=== PATIENT | female | born 1965 | race Caucasian/White ===

== ENCOUNTER → 2020-05-09 15:54 | Outpatient (CLI) | payer OTHER, SELFPAY ==
--- NOTE | 2020-05-09 16:01 | DI.RAD.S_ITS ---
PROCEDURE: XR KNEE RT 1TO2V INDICATIONS: RIGHT KNEE PAIN TECHNIQUE: 3 views of the knee were acquired. COMPARISON: None. FINDINGS: Bones: No fractures or dislocations. No suspicious bony lesions. Mild narrowing of the medial femorotibial joint and tricompartmental periarticular osteophyte formation. Soft tissues: No joint effusion. No suspicious soft tissue calcifications. IMPRESSION: Mild joint degeneration. Dictated by: Héctor Diaz [facility] Interpreted: Nabeel Silva MD on 05/09/2020 at 16:25 Approved by: Nabeel Silva M.D. on 05/09/2020 at 17:03
== END ==
PROVIDERS: PCP Student in an Organized Health Care Education/Training Program; Referring Provider Student in an Organized Health Care Education/Training Program; Visit Provider Student in an Organized Health Care Education/Training Program
DX: M25.561 Pain in right knee (principal); M17.11 Unilateral primary osteoarthritis, right knee
CPT/HCPCS: 73560

== ENCOUNTER → 2020-05-19 14:17 | Outpatient (CLI) | payer OTHER, SELFPAY ==
[2020-05-19 16:09] LABS: Add Manual Diff / Slide Review NO; Basophils Absolute Auto 0 /uL (0-100); Basophils Percent Auto 0.6 % (0-2); Eosinophils Absolute Auto 100 /uL (0-450); Eosinophils Percent Auto 1.4 % (2-4); Hemoglobin 13.6 g/dL (12.0-16.0); Lymphocytes Absolute Auto 2200 /uL (1100-4500); Lymphocytes Percent Auto 34.2 % (25-40); Mean Corpuscular HGB Conc 34.1 % (30-36); Mean Corpuscular Hemoglobin 31.3 PG (26-34); Mean Corpuscular Volume 91.8 fL (80-100); Monocytes Absolute Auto 500 /uL (0-900); Monocytes Percent Auto 7.6 % (3-14); Neutrophils Absolute Auto 3600 /uL (1500-7000); Neutrophils Percent Auto 56.2 % (50-75); Platelet Count 198 X10^3/uL (150-400); Red Blood Cell Count 4.36 X10^6/uL (4.0-5.2); Red Cell Distribution Width 13.6 % (11.6-14.8); White Blood Cell Count 6.4 X10^3/uL (4.5-11.0)
[2020-05-19 16:49] LABS: Alanine Aminotransferase 21 IU/L (<35); Albumin 4.3 g/dL (3.5-5.0); Albumin Globulin Ratio 1.5 (1.0-2.8); Alkaline Phosphatase 70 U/L (38-126); Aspartate Aminotransferase 28 IU/L (14-36); BUN Creatinine Ratio 27.8 (6-22); Bilirubin Total 0.5 mg/dL (0.2-1.3); Blood Urea Nitrogen 20 mg/dL (7-17); Calcium 9.7 mg/dL (8.4-10.2); Carbon Dioxide 25 mmol/L (22-32); Chloride 105 mmol/L (98-107); Cholesterol 193 mg/dL (140-199); Estimated Glomerular Filt Rate > 60.0 mL/min (>60); Globulin 2.8 g/dL (1.7-4.1); Glucose 90 mg/dL (70-100); HDL Cholesterol 50 mg/dL (40-60); HEMOLYSIS < 15 (0-50); LDL Cholesterol Calculated 123 mg/dL (<100); Potassium 4.1 mmol/L (3.4-5.1); Sodium 138 mmol/L (137-145); Total Protein 7.1 g/dL (6.3-8.2); Triglycerides 102 mg/dL (35-150)
[2020-05-19 17:13] LABS: TSH w/ Reflex to FT4 1.87 uIU/mL (0.47-4.68)
== END ==
PROVIDERS: PCP Student in an Organized Health Care Education/Training Program; Referring Provider Student in an Organized Health Care Education/Training Program; Visit Provider Student in an Organized Health Care Education/Training Program
DX: E66.9 Obesity, unspecified (principal)
CPT/HCPCS: 36415; 80053; 80061; 84443; 85025

== ENCOUNTER 2020-06-28 15:56 | Emergency (ER) | payer OTHER, SELFPAY ==
[2020-06-28 16:00] VITALS: BP 132/79; PULSE 86; RESP 20; TEMP 36.8; O2SAT 97; BMI 32.3
[2020-06-28 16:25] VITALS: PULSE 70; RESP 26; O2SAT 97
[2020-06-28 16:30] VITALS: BP 110/68; PULSE 69; RESP 27; O2SAT 98
[2020-06-28 16:39] LABS: Add Manual Diff / Slide Review NO; Basophils Absolute Auto 0 /uL (0-100); Basophils Percent Auto 0.6 % (0-2); Eosinophils Absolute Auto 200 /uL (0-450); Eosinophils Percent Auto 2.3 % (2-4); Hematocrit 40.5 % (36-46); Hemoglobin 13.7 g/dL (12.0-16.0); Lymphocytes Absolute Auto 2900 /uL (1100-4500); Lymphocytes Percent Auto 43.9 % (25-40); Mean Corpuscular HGB Conc 33.9 % (30-36); Mean Corpuscular Hemoglobin 31.1 PG (26-34); Mean Corpuscular Volume 91.8 fL (80-100); Monocytes Absolute Auto 600 /uL (0-900); Monocytes Percent Auto 8.4 % (3-14); Neutrophils Absolute Auto 2900 /uL (1500-7000); Neutrophils Percent Auto 44.8 % (50-75); Platelet Count 239 X10^3/uL (150-400); Red Blood Cell Count 4.41 X10^6/uL (4.0-5.2); Red Cell Distribution Width 13.4 % (11.6-14.8); White Blood Cell Count 6.6 X10^3/uL (4.5-11.0)
[2020-06-28 16:45] LABS: Alanine Aminotransferase 17 IU/L (<35); Albumin 4.4 g/dL (3.5-5.0); Albumin Globulin Ratio 1.4 (1.0-2.8); Alkaline Phosphatase 72 U/L (38-126); Aspartate Aminotransferase 29 IU/L (14-36); BUN Creatinine Ratio 18.6 (6-22); Bilirubin Total 0.4 mg/dL (0.2-1.3); Blood Urea Nitrogen 13 mg/dL (7-17); Calcium 9.4 mg/dL (8.4-10.2); Carbon Dioxide 27 mmol/L (22-32); Chloride 106 mmol/L (98-107); Estimated Glomerular Filt Rate > 60.0 mL/min (>60); Globulin 3.2 g/dL (1.7-4.1); Glucose 114 mg/dL (70-100); HEMOLYSIS 25 (0-50); Lipase 96 U/L (23-300); Potassium 4.1 mmol/L (3.4-5.1); Sodium 141 mmol/L (137-145); Total Protein 7.6 g/dL (6.3-8.2)
[2020-06-28] MEDS: ASPIRIN 81 MG CHEW TAB 324 MG PO (16:56)
[2020-06-28 16:57] LABS: NT-proBNP (BNP-Adult 18+) 59 pg/mL (<125); Troponin I < 0.012 ng/mL (0.01-0.034)
[2020-06-28 17:00] VITALS: PULSE 73; RESP 27; O2SAT 97
[2020-06-28 17:01] VITALS: BP 128/73; PULSE 73; RESP 27; O2SAT 97
--- NOTE | 2020-06-28 17:10 | ED_ITS ---
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 She describes the pain as sharp stabbing requiring her full attention for a couple of minutes located just under her breast on the left side occurring while she was at rest and not associated with diaphoresis or dyspnea. She notes that she has had a bit more dizziness over the last 24 hours but also notes that she has been having an exacerbation of her benign positional vertigo over the last number of weeks to months. She describes no fevers, cough, chills, nausea, vomiting, abdominal pain, lower extremity edema, rashes, orthopnea or exertional dyspnea. The 2 brief episodes were by about 30 minutes and occurred approximately 3 hours prior to arrival in the emergency room. She is asymptomatic in the emergency department Related Data Allergies Allergy/AdvReac Type Severity Reaction Status Date / Time No Known Drug Allergies Allergy Verified 06/28/20 16:56 Review of Systems Review of Systems Narrative: Remainder of review of systems including constitutional, ENT, cardiovascular, respiratory, GI, , musculoskeletal, skin, neurologic and psychiatric systems reviewed and are unremarkable except as noted in HPI. Patient History Medical History Atrial fibrillation (Inactive) Social History Smoking Status: Never smoker Smoking Status: Never smoker alcohol intake frequency: holidays/special occasions only Substance Use Type: does not use Exam Narrative Exam Narrative: General: Healthy appearing, in no acute distress. Able to give a complete and coherent history. Well-nourished well-developed HEENT: Moist mucous membranes, normal sclera with reactive pupils, Neck: No JVD, supple Respiratory: Lungs are clear to auscultation, no wheezing no rales no rhonchi. Full and symmetrical air movement Cardiac: Regular rate and rhythm no murmurs no bruits Abdomen: Soft nontender good bowel tones, no flank pain Skin: Warm and dry, no rashes Neurologic: Grossly neurologically intact with no obvious asymmetries or abnormalities Extremities: No trauma, well perfused Psych: Cooperative, appropriate insight and affect Initial Vital Signs Initial Vital Signs: Vital Signs Temperature 98.2 F 06/28/20 16:00 Pulse Rate 86 06/28/20 16:00 Respiratory Rate 20 06/28/20 16:00 Blood Pressure 132/79 06/28/20 16:00 Pulse Oximetry 97 06/28/20 16:00 Course Orders Ordered: ED Orders 06/28/20 16:06 EKG-12 Lead Routine 06/28/20 16:08 Complete Blood Count AUTO DIFF Stat Comprehensive Metabolic Panel Stat Lipase Stat NT-proBNP (BNP-Adult 18+) Stat Thyroid Stimulating Hormone Stat Troponin I Stat Discontinued Medications Aspirin (Aspirin Chew) 324 mg PO NOW ONE Stop: 06/28/20 16:31 Last Admin: 06/28/20 16:56 Dose: 324 mg Documented by: NADIRA Vital Signs Vital signs: Vital Signs - 8 hr 06/28/20 16:00 06/28/20 16:25 06/28/20 16:30 Temperature 98.2 F Pulse Rate 86 70 69 Respiratory Rate 20 26 H 27 H Blood Pressure 132/79 110/68 Pulse Oximetry 97 97 98 06/28/20 17:00 06/28/20 17:01 06/28/20 17:30 Temperature Pulse Rate 73 73 64 Respiratory Rate 27 H 27 H 15 Blood Pressure 128/73 126/74 Pulse Oximetry 97 97 99 MDM - Arrhythmia/Palpitations Medical Records Attestation: I reviewed the patient's medical records. Lab Data Attestation: I reviewed the patient's lab results. Result diagrams: 06/28/20 16:08 06/28/20 16:08 Labs: Lab Results 06/28/20 06/28/20 06/28/20 Range/Units 16:08 16:08 16:08 WBC 6.6 (4.5-11.0) X10^3/uL RBC 4.41 (4.0-5.2) X10^6/uL Hgb 13.7 (12.0-16.0) g/dL Hct 40.5 (36-46) % MCV 91.8 (80-100) fL MCH 31.1 (26-34) PG MCHC 33.9 (30-36) % RDW 13.4 (11.6-14.8) % Plt Count 239 (150-400) X10^3/uL Neut % (Auto) 44.8 L (50-75) % Lymph % (Auto) 43.9 H (25-40) % [place] % (Auto) 8.4 (3-14) % Eos % (Auto) 2.3 (2-4) % Baso % (Auto) 0.6 (0-2) % Neut # (Auto) 2900 (0883-6259) /uL Lymph # (Auto) 2900 (1339-1614) /uL [place] # (Auto) 600 (0-900) /uL Eos # (Auto) 200 (0-450) /uL Baso # (Auto) 0 (0-100) /uL Sodium 141 (137-145) mmol/L Potassium 4.1 (3.4-5.1) mmol/L Chloride 106 (98-107) mmol/L Carbon Dioxide 27 (22-32) mmol/L BUN 13 (7-17) mg/dL Creatinine 0.70 (0.52-1.04) mg/dL Estimated GFR > 60.0 (>60) mL/min BUN/Creatinine Ratio 18.6 (6-22) Glucose 114 H (70-100) mg/dL Calcium 9.4 (8.4-10.2) mg/dL Total Bilirubin 0.4 (0.2-1.3) mg/dL AST 29 (14-36) IU/L ALT 17 (<35) IU/L Alkaline Phosphatase 72 (38-126) U/L Troponin I < 0.012 (0.01-0.034) ng/mL NT-Pro-B Natriuret Pep 59 (<125) pg/mL Total Protein 7.6 (6.3-8.2) g/dL Albumin 4.4 (3.5-5.0) g/dL Globulin 3.2 (1.7-4.1) g/dL Albumin/Globulin Ratio 1.4 (1.0-2.8) Lipase 96 (23-300) U/L TSH 2.35 (0.47-4.68) uIU/mL ECG Data Attestation: I personally reviewed and interpreted this ECG as follows: Interpretation: Sinus rhythm at a rate of 77 Normal axis, normal intervals No acute ischemic changes MDM Narrative Medical decision making narrative: 55-year-old woman with atypical chest pain, left-sided sharp stabbing lasting brief minutes repeated 30 minutes later and resolving spontaneously. Occurring at rest with no other signs or symptoms of acute cardiac issues. Workup is entirely unremarkable. Atypical chest pain with no evidence of acute coronary syndrome, pneumothorax, pulmonary embolism, pneumonia or other life-threatening entity. Patient is safe for home discharge Discharge Plan Departure Patient Disposition: Home Clinical Impression: Atypical chest pain Instructions: DI for Atypical Chest Pain Activity Restrictions/Additional Instructions: Thank you for coming in today I do not have an explanation for the general malaise and dizziness you experi enced over the past 24 hours. Your heart workup in the emergency room was very reassuring. There is no evidence of an acute heart attack or heart attack like syndrome, no pneumonia no collapsed lung and no significant arrhythmias were appreciated during her emergency room stay while your on telemetry. Your TSH was in the normal range today If you have worsening or changing symptoms please feel free to return to the emergency department. At this point the description of your pain as well as the workup done in the emergency room suggests that this is more musculoskeletal type pain rather than cardiac. Unfortunately woman can sometimes be difficult to fully diagnose and if your symptoms persist please make sure you return It also make sense for you to follow-up with her primary care physician. He may recommend some outpatient cardiac risk stratification testing. I wish you the best Referrals: Kei Waite MD [Primary Care Provider] -
[2020-06-28 17:26] LABS: Thyroid Stimulating Hormone 2.35 uIU/mL (0.47-4.68)
[2020-06-28 17:30] VITALS: BP 126/74; PULSE 64; RESP 15; O2SAT 99
== END 2020-06-28 18:11 | disposition home or self-care (01) ==
PROVIDERS: Emergency Provider Emergency Medicine; PCP Internal Medicine
DX: R07.89 Other chest pain (principal)
CPT/HCPCS: 36415; 80053; 83690; 83880; 84443; 84484; 85025; 93005; 93010; 99284

== ENCOUNTER → 2024-08-28 10:45 | Outpatient (CLI) | payer BC, SELFPAY ==
--- NOTE | 2024-08-28 10:49 | DI.US.S_ITS ---
PROCEDURE: US ABDOMEN COMPLETE INDICATIONS: EPIGASTRIC PAIN TECHNIQUE: Real-time scanning was performed of the abdominal and retroperitoneal organs, with image documentation. COMPARISON: [facility], [place], PET NECK TO MID THIGH, 12/22/2021, 14:06. FINDINGS: Liver: Measures 11.3 cm. Increased in echogenicity. Gallbladder: Shadowing due to gallstones. Normal gallbladder wall thickness. No pericholecystic fluid. Negative sonographic Maloney's sign. Biliary ducts: Intrahepatic bile ducts are non-dilated. Extrahepatic bile duct caliber measures 5 mm. Normal is 6-7 mm or less in diameter, or 10 mm or less post-cholecystectomy. Pancreas: Visualized portions of the pancreas are sonographically normal. The body and tail are not well seen. Spleen: Spleen is normal in size and homogeneous in echotexture. Measures 7.4 cm. Kidneys: Kidneys are normal in size and echotexture. Right kidney measures 10.5 cm long; left kidney measures 11.2 cm long. No hydronephrosis or nephrolithiasis. No solid masses. Aorta: Visualized aorta is normal in caliber at less than 3 cm. Iliacs: Proximal common iliac arteries are normal in caliber at less than 2.5 cm. IVC: Intrahepatic inferior vena cava is patent. Miscellaneous: No free abdominal fluid. IMPRESSION: Technically difficult exam due to bowel gas. 1. Increased hepatic echogenicity most consistent with hepatic steatosis. Other forms of hepatocellular disease could have similar appearance. 2. No acute cholecystitis demonstrated. Gallstones. 3. No hydronephrosis. Dictated by: Pradeep Chowdary M.D. on 08/28/2024 at 20:18 Approved by: Pradeep Chowdary M.D. on 08/28/2024 at 20:25
== END ==
LOC: US 10:47
PROVIDERS: PCP Internal Medicine; Referring Provider Family Medicine; Visit Provider Family Medicine
DX: R10.13 Epigastric pain (principal); K80.20 Calculus of gallbladder without cholecystitis without obstruction
CPT/HCPCS: 76700